=== PATIENT | female | born 1980 | race Caucasian/White ===

== ENCOUNTER 2017-10-09 09:44 | Emergency (ER) | payer MEDICAID ==
[2017-10-09 10:35] LABS: URINE APPEARANCE CLEAR; URINE BILIRUBIN NEGATIVE (NEGATIVE); URINE BLOOD NEGATIVE (NEGATIVE); URINE COLOR YELLOW; URINE GLUCOSE (UA) NEGATIVE (NEGATIVE); URINE KETONE NEGATIVE (NEGATIVE); URINE LEUKOCYTE ESTERASE TRACE (NEGATIVE); URINE NITRITE NEGATIVE (NEGATIVE); URINE PROTEIN NEGATIVE (NEGATIVE); URINE UROBILINOGEN 0.2 E.U./dL (0.20 - 1.00)
[2017-10-09 10:43] LABS: URINE RBC NONE SEEN (NONE SEEN)
[2017-10-09 10:44] LABS: URINE BACTERIA 1+; URINE MUCUS 2+
[2017-10-09] MEDS: KETOROLAC 30 MG/ML VIAL IVP ONE (11:17)
[2017-10-09] MEDS: 0.9 % SODIUM CHLORIDE 1,000 ML BAG IV ONE (11:17)
[2017-10-09 11:49] LABS: BASO % 0.6 % (0-6); GRAN % 71.2 % (47-80); HEMATOCRIT 43.2 % (35.0-47.0); LYMPH % 14.3 % (16-45); MEAN CELL VOLUME 91.1 fl (81-97); MEAN CORPUSCULAR HEMOGLOBIN 29.5 pg (27-33); MEAN CORPUSCULAR HGB CONC 32.4 g/dl (32-36); MONO % 10.9 % (0-9); PLATELET COUNT 286 K/uL (130-400); RED BLOOD COUNT 4.74 M/uL (3.80-5.40); WHITE BLOOD COUNT W/O DIFF 11.9 K/uL (4.2-12.2)
[2017-10-09 12:06] LABS: ALBUMIN 4.3 g/dL (4.0-5.0); ALKALINE PHOSPHATASE 71 U/L (35-104); ALT/SGPT 38 U/L (<33); AST/SGOT 29 U/L (10.0-35.0); BILIRUBIN,DIRECT < 0.2 mg/dL (0-0.3); BLOOD UREA NITROGEN 9 mg/dL (6-20); CREATININE 0.6 mg/dL (0.5-0.9); EST GLOMERULAR FILTRATION RATE > 60 mL/min; GLUCOSE,RANDOM 97 mg/dL (74-109); TOTAL PROTEIN 7.6 g/dL (6.6-8.7)
--- NOTE | 2017-10-09 12:22 | Emergency Department Record ---
History of Present Illness - General Chief Complaint: Abdominal Pain Stated Complaint: ABDOMINAL PAIN/DIZZY Time Seen by Provider: 10/09/17 09:57 Mode of Arrival: Ambulatory - History of Present Illness Initial Comments: 2-3 days of hot and cold and body aches and talking appropriately and no nuchal signs and she denies a sore throat and cough she has urinated more than usual Onset/Timin -: Days(s) Location: R Flank, RLQ Severity: Moderate Severity scale (1-10): 7 Quality: Aching Consistency: Constant, Intermittent Improves With: Nothing Worsens With: Nothing - Related Data Previous Rx's Medication Instructions Recorded Ciprofloxacin HCl [Cipro] 500 mg PO Q12HR #20 tablet 10/09/17 Allergies Allergy/AdvReac Type Severity Reaction Status Date / Time No Known Drug Allergies Allergy Verified 10/09/17 09:55 Travel Screening - Travel/Exposure Within Last 30 Days Have you traveled within the last 30 days?: No - Travel/Exposure Within Last Year Have you traveled outside the [place] in the last year?: No - Additonal Travel Details Have you been exposed to anyone with a communicable illness?: No - Travel Symptoms Symptom Screening: None Review of Systems Reviewed: No additional complaints except as noted below Constitutional: Reports: As per HPI. Denies: Chills, Fever, Malaise, Night sweats, Weakness, Weight change Eyes: Reports: As per HPI. Denies: Eye discharge, Eye pain, Photophobia, Vision change ENT: Reports: As per HPI. Denies: Congestion, Dental pain, Ear pain, Epistaxis , Hearing loss, Throat pain Respiratory: Reports: As per HPI. Denies: Cough, Dyspnea, Hemoptysis, Stridor, Wheezes Cardiovascular: Reports: As per HPI. Denies: Arrhythmia, Chest pain, Dyspnea on exertion, Edema, Murmurs, Orthopnea, Palpitations, Paroxysmal nocturnal dyspnea, Rheumatic Fever, Syncope Endocrine: Reports: As per HPI. Denies: Fatigue, Heat or cold intolerance, Polydipsia, Polyuria Gastrointestinal: Reports: As per HPI. Denies: Abdominal pain, Constipation, Diarrhea, Hematemesis, Hematochezia, Melena, Nausea, Vomiting Genitourinary: Reports: As per HPI. Denies: Abnormal menses, Discharge, Dyspareunia, Dysuria, Frequency, Hematuria, Incontinence, Retention, Urgency Musculoskeletal: Reports: As per HPI. Denies: Arthralgia, Back pain, Gout, Joint swelling, Myalgia, Neck pain Skin: Reports: As per HPI. Denies: Bruising, Change in color, Change in hair/ nails, Lesions, Pruritus, Rash Neurological: Reports: As per HPI. Denies: Abnormal gait, Confusion, Headache, Numbness, Paresthesias, Seizure, Tingling, Tremors, Vertigo, Weakness Psychiatric: Reports: As per HPI. Denies: Anxiety, Auditory hallucinations, Depression, Homicidal thoughts, Suicidal thoughts, Visual hallucinations Hematological/Lymphatic: Reports: As per HPI. Denies: Anemia, Blood Clots, Easy bleeding, Easy bruising, Swollen glands Past Medical History - SOCIAL HISTORY Smoking Status: Never smoker Alcohol Use: None, Rare Drug Use: None - RESPIRATORY Hx Respiratory Disorders: No - CARDIOVASCULAR Hx Cardio Disorders: No - NEURO Hx Neuro Disorders: No - GI Hx Reflux: Yes (with preganacy) - Hx UTI: Yes Comment:: kidney infection - ENDOCRINE Hx Diabetes: No Hx Thyroid Disease: No - MUSCULOSKELETAL Hx Musculoskeletal Disorders: No - PSYCH Hx Psych Problems: No - HEMATOLOGY/ONCOLOGY Hx Hematology/Oncology Disorders: No Hx Anemia: No Family Medical History Any Significant Family History?: Yes Physical Exam - General General Appearance: Alert, Oriented x3, Cooperative, No acute distress - Head Head exam: Normal inspection - Eye Eye exam: Normal appearance, PERRL Pupils: Normal accommodation - ENT ENT exam: Normal exam, Mucous membranes moist, Normal external ear exam, Normal orophraynx, TM's normal bilaterally Ear exam: Normal external inspection. negative: External canal tenderness Nasal Exam: Normal inspection. negative: Discharge, Sinus tenderness Mouth exam: Normal external inspection, Tongue normal Teeth exam: Normal inspection. negative: Dental caries Throat exam: Normal inspection. negative: Tonsillar erythema, Tonsillar exudate - Neck Neck exam: Normal inspection, Full ROM. negative: Tenderness - Respiratory Respiratory exam: Normal lung sounds bilaterally. negative: Respiratory distress - Cardiovascular Cardiovascular Exam: Regular rate, Normal rhythm, Normal heart sounds - GI/Abdominal GI/Abdominal exam: Soft, Normal bowel sounds, Tenderness (right lower quad pain very mild and I could not reproduce it with palpation). negative: Distended, Guarding, Rebound, Rigid - Rectal Rectal exam: Deferred - exam: Deferred - Extremities Extremities exam: Normal inspection, Full ROM, Normal capillary refill. negative: Tenderness - Back Back exam: Reports: Normal inspection, Full ROM. Denies: Muscle spasm, Rash noted, Tenderness - Neurological Neurological exam: Alert, Normal gait, Oriented X3, Reflexes normal - Psychiatric Psychiatric exam: Normal affect, Normal mood - Skin Skin exam: Dry, Intact, Normal color, Warm Course Vital Signs 10/09/17 11:57 Pulse Rate [ 67 Pulse Ox Probe] Respiratory 16 Rate Blood Pressure 103/53 [Right Arm] Pulse Ox 97 Medical Decision Making - Data Complexity MDM Data: Labs Ordered and/or Reviewed (early UTI on urine) - Lab Data Result diagrams: 10/09/17 11:12 10/09/17 11:12 Lab Results 10/09/17 10/09/17 10/09/17 Range/Units 10:30 10:30 11:12 WBC 11.9 (4.2-12.2) K/uL RBC 4.74 (3.80-5.40) M/uL Hgb 14.0 (11.6-16.0) gm/dl Hct 43.2 (35.0-47.0) % MCV 91.1 (81-97) fl MCH 29.5 (27-33) pg MCHC 32.4 (32-36) g/dl RDW 13.0 (11.5-14.5) % Plt Count 286 (130-400) K/uL MPV 10.0 (7.4-10.4) fl Gran % 71.2 (47-80) % Lymphocytes % 14.3 L (16-45) % Monocytes % 10.9 H (0-9) % Eosinophils % 3.0 (0-6) % Basophils % 0.6 (0-6) % Sodium (136-145) mmol/L Potassium (3.4-4.5) mmol/L Chloride (98-107) mmol/L Carbon Dioxide (22-29) mmol/L Anion Gap (7-16) BUN (6-20) mg/dL Creatinine (0.5-0.9) mg/dL Estimated GFR mL/min Random Glucose (74-109) mg/dL Calcium (8.6-10.0) mg/dL Total Bilirubin (0.2-1.0) mg/dL Direct Bilirubin (0-0.3) mg/dL AST (10.0-35.0) U/L ALT (<33) U/L Alkaline Phosphatase (35-104) U/L Total Protein (6.6-8.7) g/dL Albumin (4.0-5.0) g/dL Urine Color Yellow Urine Appearance Clear Urine pH 6.0 (5.0-8.0) Ur Specific [place] 1.025 (1.002-1.030) Urine Protein Negative (NEGATIVE) Urine Glucose (UA) Negative (NEGATIVE) Urine Ketones Negative (NEGATIVE) Urine Blood Negative (NEGATIVE) Urine Nitrite Negative (NEGATIVE) Urine Bilirubin Negative (NEGATIVE) Urine Urobilinogen 0.2 (0.20 - 1.00) E.U./dL Ur Leukocyte Esterase Trace H (NEGATIVE) Urine RBC None seen (NONE SEEN) Urine WBC 3 - 5 (0-2/hpf) U Non-Squamous Epi Cells 3 - 6 /hpf Urine Bacteria 1+ Urine Mucus 2+ Urine HCG, Qual Negative (NEGATIVE) 10/09/17 Range/Units 11:12 WBC (4.2-12.2) K/uL RBC (3.80-5.40) M/uL Hgb (11.6-16.0) gm/dl Hct (35.0-47.0) % MCV (81-97) fl MCH (27-33) pg MCHC (32-36) g/dl RDW (11.5-14.5) % Plt Count (130-400) K/uL MPV (7.4-10.4) fl Gran % (47-80) % Lymphocytes % (16-45) % Monocytes % (0-9) % Eosinophils % (0-6) % Basophils % (0-6) % Sodium 143 (136-145) mmol/L Potassium 3.8 (3.4-4.5) mmol/L Chloride 101 (98-107) mmol/L Carbon Dioxide 26.0 (22-29) mmol/L Anion Gap 16.0 (7-16) BUN 9 (6-20) mg/dL Creatinine 0.6 (0.5-0.9) mg/dL Estimated GFR > 60 mL/min Random Glucose 97 (74-109) mg/dL Calcium 9.3 (8.6-10.0) mg/dL Total Bilirubin 0.30 (0.2-1.0) mg/dL Direct Bilirubin < 0.2 (0-0.3) mg/dL AST 29 (10.0-35.0) U/L ALT 38 H (<33) U/L Alkaline Phosphatase 71 (35-104) U/L Total Protein 7.6 (6.6-8.7) g/dL Albumin 4.3 (4.0-5.0) g/dL Urine Color Urine Appearance Urine pH (5.0-8.0) Ur Specific [place] (1.002-1.030) Urine Protein (NEGATIVE) Urine Glucose (UA) (NEGATIVE) Urine Ketones (NEGATIVE) Urine Blood (NEGATIVE) Urine Nitrite (NEGATIVE) Urine Bilirubin (NEGATIVE) Urine Urobilinogen (0.20 - 1.00) E.U./dL Ur Leukocyte Esterase (NEGATIVE) Urine RBC (NONE SEEN) Urine WBC (0-2/hpf) U Non-Squamous Epi Cells /hpf Urine Bacteria Urine Mucus Urine HCG, Qual (NEGATIVE) Disposition Clinical Impression: UTI (urinary tract infection) Qualifiers: Urinary tract infection type: acute cystitis Hematuria presence: without hematuria Qualified Code(s): N30.00 - Acute cystitis without hematuria Disposition: Home, Self-Care Condition: (1) Good Instructions: Urinary Tract Infection in Women (ED) Additional Instructions: follow up with family Dr in 2 days Prescriptions: Ciprofloxacin HCl [Cipro] 500 mg PO Q12HR #20 tablet Forms: Patient Portal Access Time of Disposition: 12:22 Quality - Quality Measures Quality Measures: N/A - Blood Pressure Screening Does Patient Have Any of the Following: No Blood Pressure Classification: Normal BP Reading Systolic Measurement: 103 Diastolic Measurement: 53 Screening for High Blood Pressure: < Normal BP, F/U Not Required > [G8783]
== END 2017-10-09 12:38 | disposition home or self-care (01) ==
LOC: ER 09:44
DX: N30.00 Acute cystitis without hematuria (principal); R42 Dizziness and giddiness; R10.31 Right lower quadrant pain
CPT/HCPCS: 80048; 80076; 81001; 81025; 85025; 96374; 99284; J1885; J7030

== ENCOUNTER 2018-11-24 16:24 | Emergency (ER) | payer SELFPAY ==
[2018-11-24] MEDS ORDERED: IBUPROFEN 600 MG TABLET PO ONE (18:04)
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
== END 2018-11-24 19:27 | disposition home or self-care (01) ==
LOC: ER 16:24
DX: S80.12XA Contusion of left lower leg, initial encounter (principal); S20.219A Contusion of unspecified front wall of thorax, initial encounter; S10.93XA Contusion of unspecified part of neck, initial encounter; R51 Headache; R07.9 Chest pain, unspecified; M54.2 Cervicalgia; V43.53XA Car driver injured in collision with pick-up truck in traffic accident, initial encounter; Y92.410 Unspecified street and highway as the place of occurrence of the external cause
CPT/HCPCS: 70450; 71046; 72125; 99283; 99284